=== PATIENT | male | born 1970 | race African-American/Black ===

== ENCOUNTER 2017-11-13 03:59 | Emergency (ER) | payer MEDICAID ==
[~2017-11-13] VITALS: Ht 172.7 cm; Wt 127.0 kg
[~2017-11-13 03:59] MED LIST: METF500T6 PO
[2017-11-13] MEDS ORDERED: VISCOUS LIDOCAINE 2% 15 ML UDC MM STA (04:19)
[2017-11-13] MEDS ORDERED: MAGNESIUM/ALUMINUM HYDROXIDE/SIMETHICONE 30ML UDC PO ONE (04:30)
[2017-11-13] MEDS ORDERED: FAMOTIDINE 20MG TABLET PO ONE (04:30)
[2017-11-13 04:37] VITALS: BP 133/76
[2017-11-13 04:56] LABS: CHLORIDE 100 mEq/L (98-107)
[2017-11-13 04:59] LABS: BASOPHILS % 0.5 % (0.0-2.0); EOSINOPHILS % 1.3 % (0.0-5.0); HEMATOCRIT. 37.6 % (42.0-52.0); HEMOGLOBIN. 12.4 g/dL (14.0-18.0); LYMPHOCYTES % 32.1 % (20.0-50.0); MEAN CORPUSCULAR HEMOGLOBIN 27.4 pg (28.0-32.0); MEAN CORPUSCULAR VOLUME 83.5 fL (80.0-94.0); MEAN PLATELET VOLUME 10.3 fl (7.4-10.4); NEUTROPHILS % 58.1 % (40.0-76.0); PLATELET 218 x1000/uL (130-400); RED BLOOD CELL COUNT 4.51 mill/uL (4.7-6.1); RED CELL DISTRIBUTION WIDTH 13.9 % (11.6-14.6)
== END 2017-11-13 05:58 | disposition home or self-care (01) ==
LOC: ER 03:59
DX: K29.70 Gastritis, unspecified, without bleeding (principal); E11.65 Type 2 diabetes mellitus with hyperglycemia; J45.909 Unspecified asthma, uncomplicated; E66.9 Obesity, unspecified; Z88.0 Allergy status to penicillin
CPT/HCPCS: 36415; 80053; 82962; 83690; 85025; 93005; 99285

== ENCOUNTER 2018-08-04 02:40 | Emergency (ER) | payer MEDICAID ==
[~2018-08-04] VITALS: Ht 172.7 cm; Wt 127.0 kg
[~2018-08-04 02:40] MED LIST changes: +METF-414 PO; -METF500T6 PO
[2018-08-04] MEDS ORDERED: KETOROLAC 30MG/ML VIAL IV STA (04:51)
[2018-08-04 05:09] LABS: CHLORIDE 103 mEq/L (98-107)
[2018-08-04 05:13] LABS: BASOPHILS % 0.3 % (0.0-2.0); EOSINOPHILS % 1.6 % (0.0-5.0); HEMATOCRIT. 38.3 % (42.0-52.0); HEMOGLOBIN. 12.4 g/dL (14.0-18.0); LYMPHOCYTES % 23.1 % (20.0-50.0); MEAN CORPUSCULAR HEMOGLOBIN 27.6 pg (28.0-32.0); MEAN CORPUSCULAR VOLUME 85.4 fL (80.0-94.0); MONOCYTES % 7.6 % (2.0-8.0); NEUTROPHILS % 67.4 % (40.0-76.0); PLATELET 193 x1000/uL (130-400); RED BLOOD CELL COUNT 4.48 mill/uL (4.7-6.1)
[2018-08-04 08:05] VITALS: BP 133/73
== END 2018-08-04 08:08 | disposition home or self-care (01) ==
LOC: ER 02:40
DX: F41.9 Anxiety disorder, unspecified (principal); R07.89 Other chest pain; E11.9 Type 2 diabetes mellitus without complications; I10 Essential (primary) hypertension; J45.909 Unspecified asthma, uncomplicated; M19.90 Unspecified osteoarthritis, unspecified site; R00.0 Tachycardia, unspecified; Z88.0 Allergy status to penicillin; Z79.84 Long term (current) use of oral hypoglycemic drugs
CPT/HCPCS: 36415; 71045; 80053; 84484; 85025; 93005; 96374; 99284; J1885

== ENCOUNTER 2019-09-14 06:59 | Inpatient (IN) | payer MEDICAID ==
[~2019-09-14] VITALS: Ht 172.7 cm; Wt 126.7 kg
[2019-09-14 07:55] LABS: BASOPHILS % 0.7 % (0.0-2.0); EOSINOPHILS % 1.4 % (0.0-5.0); HEMATOCRIT. 42.4 % (42.0-52.0); HEMOGLOBIN. 14.2 g/dL (14.0-18.0); LYMPHOCYTES % 22.4 % (20.0-50.0); MEAN CORPUSCULAR HEMOGLOBIN 28.7 pg (28.0-32.0); MEAN CORPUSCULAR VOLUME 85.5 fL (80.0-94.0); MEAN PLATELET VOLUME 9.9 fl (7.4-10.4); MONOCYTES % 5.2 % (2.0-8.0); NEUTROPHILS % 70.3 % (40.0-76.0); PLATELET 230 x1000/uL (130-400); RED BLOOD CELL COUNT 4.96 mill/uL (4.7-6.1); RED CELL DISTRIBUTION WIDTH 12.9 % (11.6-14.6)
[2019-09-14 08:01] LABS: CHLORIDE 104 mEq/L (98-107)
[2019-09-14] MEDS ORDERED: DILTIAZEM HCL 30MG TABLET PO NR (13:15)
[2019-09-14 14:24] LABS: CREATINE KINASE 121 IU/L (39-308); CREATINE KINASE MB FRACTION < 1.0 ng/mL (0.5-3.6)
[2019-09-14] MEDS ORDERED: CLONIDINE 0.1MG TABLET PO PRN (17:00)
[2019-09-14] MEDS ORDERED: ACETAMINOPHEN 325MG TABLET PO PRN (17:00)
[2019-09-14] MEDS ORDERED: DOCUSATE SODIUM 100MG CAPSULE PO PRN (17:00)
[2019-09-14] MEDS ORDERED: LORAZEPAM 0.5MG TABLET PO PRN (17:00)
[2019-09-14] MEDS ORDERED: IPRATROPIUM/ALBUTEROL 0.5-3(2.5)MG/3ML NEB HHN PRN (17:00)
[2019-09-14] MEDS ORDERED: HYDROCODONE/ACETAMINOPHEN 5/325MG TABLET PO PRN (17:00)
[2019-09-14] MEDS ORDERED: ONDANSETRON HCL 4MG/2ML INJ IV PRN (17:00)
[2019-09-14 18:30] LABS: PHOSPHORUS 3.6 mg/dL (2.5-4.9)
[2019-09-14 18:35] LABS: CREATINE KINASE MB FRACTION 7.2 ng/mL (0.5-3.6)
[2019-09-14] MEDS: DILTIAZEM HCL 30MG TABLET PO SCH (18:52)
[2019-09-14] MEDS: INSULIN GLARGINE UD 100 UNITS/ML SYR SUBCUT SCH (23:33)
[2019-09-15] MEDS ORDERED: ATORVASTATIN CALCIUM 40MG TABLET PO NR (00:15)
[2019-09-15] MEDS ORDERED: ENOXAPARIN 120MG/0.8ML SYR SUBCUT SCH (00:15)
[2019-09-15] MEDS ORDERED: ASPIRIN 81MG TABLET PO NR (00:15)
[2019-09-15] MEDS ORDERED: DEXTROSE 50% WATER 50ML SYRINGE IV PRN (02:00)
[2019-09-15 03:00] VITALS: BP 122/83
[2019-09-15 04:00] VITALS: BP 132/78
[2019-09-15] MEDS ORDERED: DOCU250C69 MT (04:03)
[2019-09-15] MEDS ORDERED: METF-416 MT (04:03)
[2019-09-15] MEDS ORDERED: GLIP10TA10 MT (04:03)
[2019-09-15] MEDS ORDERED: NAPR500T7 MT (04:05)
[2019-09-15] MEDS ORDERED: CYCL10TA7 MT (04:05)
[2019-09-15] MEDS ORDERED: MECL-159 MT (04:07)
[2019-09-15] MEDS ORDERED: SITA100T11 MT (04:07)
[2019-09-15] MEDS ORDERED: GABA-531 MT (04:08)
[2019-09-15] MEDS ORDERED: ALBU18HF2 IH (04:08)
[2019-09-15] MEDS: BLOOD SUGAR DIAGNOSTIC STRIP TEST SCH ×4 (06:23→21:31)
[2019-09-15] MEDS: DILTIAZEM HCL 30MG TABLET PO SCH ×3 (06:24→12:20)
[2019-09-15] MEDS: INSULIN LISPRO (HIGH DOSE) 100 UNITS/ML SUBCUT SCH ×4 (06:25→21:33)
[2019-09-15 08:00] VITALS: BP 110/73
[2019-09-15 09:05] LABS: BASOPHILS % 0.5 % (0.0-2.0); HEMATOCRIT. 42.4 % (42.0-52.0); HEMOGLOBIN. 14.2 g/dL (14.0-18.0); LYMPHOCYTES % 41.3 % (20.0-50.0); MEAN CORPUSCULAR HEMOGLOBIN 28.4 pg (28.0-32.0); MEAN CORPUSCULAR VOLUME 85.1 fL (80.0-94.0); MEAN PLATELET VOLUME 9.9 fl (7.4-10.4); MONOCYTES % 6.7 % (2.0-8.0); NEUTROPHILS % 49.5 % (40.0-76.0); PLATELET 235 x1000/uL (130-400); RED BLOOD CELL COUNT 4.99 mill/uL (4.7-6.1)
[2019-09-15 09:15] LABS: CHLORIDE 104 mEq/L (98-107)
[2019-09-15] MEDS: INSULIN GLARGINE UD 100 UNITS/ML SYR SUBCUT SCH ×2 (10:59→22:12)
[2019-09-15 12:00] VITALS: BP 120/66
[2019-09-15 16:00] VITALS: BP 127/84
[2019-09-15 20:00] VITALS: BP 128/74
[2019-09-15] MEDS ORDERED: ATORVASTATIN CALCIUM 40MG TABLET PO SCH (21:00)
[2019-09-15] MEDS: DILTIAZEM HCL 60MG TABLET PO SCH (21:32)
[2019-09-16] VITALS: BP 140/76
[2019-09-16 04:00] VITALS: BP 120/72
[2019-09-16] MEDS: DILTIAZEM HCL 60MG TABLET PO SCH ×2 (05:13→14:00)
[2019-09-16] MEDS: BLOOD SUGAR DIAGNOSTIC STRIP TEST SCH ×3 (06:26→16:34)
[2019-09-16 06:53] LABS: CHLORIDE 102 mEq/L (98-107)
[2019-09-16 07:13] LABS: BASOPHILS % 0.5 % (0.0-2.0); HEMATOCRIT. 42.8 % (42.0-52.0); HEMOGLOBIN. 14.2 g/dL (14.0-18.0); LYMPHOCYTES % 29.8 % (20.0-50.0); MEAN CORPUSCULAR HEMOGLOBIN 28.3 pg (28.0-32.0); MEAN CORPUSCULAR VOLUME 85.1 fL (80.0-94.0); MEAN PLATELET VOLUME 10.1 fl (7.4-10.4); MONOCYTES % 6.6 % (2.0-8.0); NEUTROPHILS % 61.1 % (40.0-76.0); PLATELET 230 x1000/uL (130-400); RED BLOOD CELL COUNT 5.03 mill/uL (4.7-6.1)
[2019-09-16] MEDS: INSULIN LISPRO (HIGH DOSE) 100 UNITS/ML SUBCUT SCH ×3 (07:15→16:53)
[2019-09-16 08:00] VITALS: BP 136/90
[2019-09-16] MEDS ORDERED: INSULIN GLARGINE UD 100 UNITS/ML SYR SUBCUT SCH (10:00)
[2019-09-16 12:30] VITALS: BP 140/91
[2019-09-16] MEDS ORDERED: REGADENOSON 0.4 MG/5 ML IV NR (13:00)
[2019-09-16] MEDS ORDERED: REGADENOSON 0.4 MG/5 ML IV ONE (14:24)
[2019-09-16 16:00] VITALS: BP 137/93
[2019-09-16] MEDS ORDERED: ASPI-1497 MT (16:50)
[2019-09-16] MEDS ORDERED: DILT180C66 MT (16:50)
[2019-09-16] MEDS ORDERED: LIP40 PO (16:50)
[2019-09-16 17:48] VITALS: BP 137/93
== END 2019-09-16 20:20 | disposition home or self-care (01) | DRG 190 ==
LOC: ER 07:27 → 5WST 09:04 → ENRESERV 20:20
PROVIDERS: ADMIT Internal Medicine; ATTEND Internal Medicine
DX: I21.4 Non-ST elevation (NSTEMI) myocardial infarction (principal); E11.9 Type 2 diabetes mellitus without complications; I47.1 Supraventricular tachycardia; E78.5 Hyperlipidemia, unspecified; J45.909 Unspecified asthma, uncomplicated; R79.89 Other specified abnormal findings of blood chemistry; Z79.4 Long term (current) use of insulin; Z88.0 Allergy status to penicillin; Z79.84 Long term (current) use of oral hypoglycemic drugs
CPT/HCPCS: 36415; 71045; 78452; 80048; 80053; 80061; 82550; 82553; 82962; 83036; 83735; 83880; 84100; 84484; 85025; 93005; 93306; 99285; A9500; J1650; J1815; J2785

== ENCOUNTER 2020-01-04 11:33 | Emergency (ER) | payer MEDICAID ==
[~2020-01-04] VITALS: Ht 172.7 cm; Wt 125.0 kg
[~2020-01-04 11:33] MED LIST changes: +ALBU18HF2 IH; +ASPI-1497 MT; +CYCL10TA7 MT; +DILT180C66 MT; +DOCU250C69 MT; +GABA-531 MT; +GLIP10TA10 MT; +LIP40 PO; +MECL-159 MT; -METF-414 PO; +METF-416 MT; +NAPR500T7 MT; +SITA100T11 MT
[2020-01-04 13:36] LABS: CLARITY URINE CLEAR (CLEAR); COLOR URINE YELLOW (YELLOW); KETONES URINE TRACE (NEGATIVE); LEUKOCYTE ESTERASE URINE NEGATIVE (NEGATIVE); NITRITE URINE NEGATIVE (NEGATIVE); OCCULT BLOOD URINE NEGATIVE (NEGATIVE); PH URINE 5.5 (4.5-8.0); PROTEIN URINE 1+ (NEGATIVE); SPECIFIC GRAVITY URINE 1.045 (1.005-1.030)
[2020-01-04] MEDS ORDERED: ONDANSETRON HCL 4MG/2ML INJ IV STA (13:38)
[2020-01-04] MEDS ORDERED: MORPHINE SULFATE 4 MG/ML CPJ (NOT FOR IM USE) IV STA (13:38)
[2020-01-04 13:39] LABS: BASOPHILS % 0.8 % (0.0-2.0); CHLORIDE 101 mEq/L (98-107); EOSINOPHILS % 2.5 % (0.0-5.0); HEMATOCRIT. 39.8 % (42.0-52.0); HEMOGLOBIN. 13.1 g/dL (14.0-18.0); LYMPHOCYTES % 25.7 % (20.0-50.0); MEAN CORPUSCULAR HEMOGLOBIN 28.5 pg (28.0-32.0); MEAN CORPUSCULAR VOLUME 86.8 fL (80.0-94.0); MEAN PLATELET VOLUME 10.4 fl (7.4-10.4); PLATELET 204 x1000/uL (130-400); RED BLOOD CELL COUNT 4.58 mill/uL (4.7-6.1); RED CELL DISTRIBUTION WIDTH 13.1 % (11.6-14.6)
[2020-01-04 13:41] LABS: PROTHROMBIN TIME 10.6 sec (9.6-11.0)
[2020-01-04 14:03] VITALS: BP 148/98
[2020-01-04 14:20] LABS: *BARBITURATES SCREEN URINE NEGATIVE (NEGATIVE)
[2020-01-04 14:21] LABS: *BENZODIAZEPINES SCREEN URINE NEGATIVE (NEGATIVE); *COCAINE SCREEN URINE NEGATIVE (NEGATIVE); CANNABINOID URINE SCREEN NEGATIVE (NEGATIVE); METHADONE URINE SCREEN NEGATIVE (NEGATIVE); OPIATES URINE SCREEN NEGATIVE (NEGATIVE); PHENCYCLIDINE URINE SCREEN NEGATIVE (NEGATIVE)
[2020-01-04 14:23] LABS: *AMPHETAMINES SCREEN URINE NEGATIVE (NEGATIVE)
[2020-01-04] MEDS ORDERED: INSULIN REGULAR (HUMULIN R) 300UNITS/3ML IV ONE (15:00)
[2020-01-04] MEDS ORDERED: KETOROLAC 30MG/ML VIAL IV ONE (17:15)
== END 2020-01-04 18:13 | disposition home or self-care (01) ==
LOC: ER 11:43
DX: R10.31 Right lower quadrant pain (principal); K76.89 Other specified diseases of liver; E11.65 Type 2 diabetes mellitus with hyperglycemia; D64.9 Anemia, unspecified; I11.9 Hypertensive heart disease without heart failure; J45.909 Unspecified asthma, uncomplicated; Z79.84 Long term (current) use of oral hypoglycemic drugs; Z79.82 Long term (current) use of aspirin; Z88.0 Allergy status to penicillin
CPT/HCPCS: 36415; 71045; 74176; 80053; 80305; 81003; 83690; 83880; 84484; 85025; 85610; 93005; 96374; 96375; 99285; J1815; J1885; J2270; J2405

== ENCOUNTER 2020-01-27 11:19 | Emergency (ER) | payer MEDICAID ==
[~2020-01-27] VITALS: Ht 185.4 cm; Wt 113.0 kg
[2020-01-27] MEDS ORDERED: ASPIRIN 325MG EC TABLET PO ONE (12:00)
[2020-01-27 12:30] LABS: BASOPHILS % 0.5 % (0.0-2.0); EOSINOPHILS % 1.9 % (0.0-5.0); HEMATOCRIT. 38.6 % (42.0-52.0); HEMOGLOBIN. 12.8 g/dL (14.0-18.0); MEAN CORPUSCULAR HEMOGLOBIN 28.2 pg (28.0-32.0); MEAN CORPUSCULAR VOLUME 84.9 fL (80.0-94.0); MEAN PLATELET VOLUME 9.6 fl (7.4-10.4); MONOCYTES % 8.6 % (2.0-8.0); PLATELET 208 x1000/uL (130-400); RED BLOOD CELL COUNT 4.55 mill/uL (4.7-6.1); RED CELL DISTRIBUTION WIDTH 12.8 % (11.6-14.6)
[2020-01-27 12:35] LABS: CHLORIDE 105 mEq/L (98-107)
[2020-01-27] MEDS ORDERED: CLONIDINE 0.2MG TABLET PO ONE (15:15)
[2020-01-27] MEDS ORDERED: CLOPIDOGREL 75MG TABLET PO ONE (16:30)
[2020-01-27 20:00] VITALS: BP 157/110
== END 2020-01-27 22:22 | disposition short-term general hospital (02) ==
LOC: ER 11:30
DX: R47.81 Slurred speech (principal); J45.909 Unspecified asthma, uncomplicated; E11.9 Type 2 diabetes mellitus without complications; I11.9 Hypertensive heart disease without heart failure; Z88.6 Allergy status to analgesic agent; Z79.82 Long term (current) use of aspirin
CPT/HCPCS: 36415; 70551; 80053; 82962; 85025; 93005; 99285

== ENCOUNTER 2020-10-03 07:46 | Emergency (ER) | payer MEDICAID ==
[~2020-10-03] VITALS: Ht 172.7 cm; Wt 87.0 kg
[~2020-10-03 07:46] MED LIST changes: -GABA-531 MT; +GABA-532 MT
[2020-10-03] MEDS ORDERED: MORPHINE SULFATE 4 MG/ML CPJ (NOT FOR IM USE) IV STA (08:09)
[2020-10-03] MEDS ORDERED: ONDANSETRON HCL 4MG/2ML INJ IV STA (08:09)
[2020-10-03] MEDS ORDERED: SODIUM CHLORIDE 0.9% 1,000 ML IV ONE (08:15)
[2020-10-03 08:55] LABS: BASOPHILS % 0.8 % (0.0-2.0); EOSINOPHILS % 2.5 % (0.0-5.0); HEMATOCRIT. 26.4 % (42.0-52.0); HEMOGLOBIN. 8.6 g/dL (14.0-18.0); LYMPHOCYTES % 15.1 % (20.0-50.0); MEAN CORPUSCULAR HEMOGLOBIN 27.4 pg (28.0-32.0); MEAN CORPUSCULAR VOLUME 83.8 fL (80.0-94.0); MEAN PLATELET VOLUME 8.7 fl (7.4-10.4); MONOCYTES % 9.3 % (2.0-8.0); NEUTROPHILS % 72.3 % (40.0-76.0); PLATELET 287 x1000/uL (130-400); RED BLOOD CELL COUNT 3.16 mill/uL (4.7-6.1); RED CELL DISTRIBUTION WIDTH 20.1 % (11.6-14.6)
[2020-10-03 08:57] LABS: CHLORIDE 97 mEq/L (98-107)
[2020-10-03] MEDS ORDERED: METR500T MT (10:40)
[2020-10-03] MEDS ORDERED: LEVO750T46 MT (10:40)
[2020-10-03] MEDS ORDERED: T3 PO ×2 (10:42)
[2020-10-03 11:30] VITALS: BP 121/77
== END 2020-10-03 11:46 | disposition home or self-care (01) ==
LOC: ER 07:46
DX: K52.9 Noninfective gastroenteritis and colitis, unspecified (principal); I11.9 Hypertensive heart disease without heart failure; E11.9 Type 2 diabetes mellitus without complications; Z79.84 Long term (current) use of oral hypoglycemic drugs; Z85.038 Personal history of other malignant neoplasm of large intestine; Z85.05 Personal history of malignant neoplasm of liver; Z92.21 Personal history of antineoplastic chemotherapy; Z88.0 Allergy status to penicillin
CPT/HCPCS: 36415; 74176; 80053; 83690; 85025; 93005; 96361; 96374; 96375; 99285; J2270; J2405; J7030